=== PATIENT | female | born 1985 | race Two or more races ===

== ENCOUNTER 2023-11-23 14:51 | Outpatient (CLI) | payer OTHER | END 2023-11-23 14:52 | disposition home or self-care (01) | LOC: PRENATAL 14:51 | PROVIDERS: ATTEND Obstetrics & Gynecology Maternal & Fetal Medicine | DX: O36.80X0 Pregnancy with inconclusive fetal viability, not applicable or unspecified (principal); Z36.82 Encounter for antenatal screening for nuchal translucency; O09.529 Supervision of elderly multigravida, unspecified trimester; O98.919 Unspecified maternal infectious and parasitic disease complicating pregnancy, unspecified trimester; Z3A.12 12 weeks gestation of pregnancy ==

== ENCOUNTER 2024-05-26 12:25 | Outpatient (CLI) | payer OTHER | END 2024-05-26 13:24 | disposition home or self-care (01) | LOC: NST 12:25 | PROVIDERS: ATTEND Obstetrics & Gynecology | DX: Z34.83 Encounter for supervision of other normal pregnancy, third trimester (principal) ==

== ENCOUNTER 2024-05-28 07:50 | Inpatient (IN) | payer OTHER ==
[2024-05-28] VITALS (8 sets, daily range): BP systolic 115–133; BP diastolic 63–80
[~2024-05-28] VITALS: Ht 157.5 cm; Wt 77.6 kg
[2024-05-28] MEDS ORDERED: RINGERS SOLUTION,LACTATED 1,000 ML IV SCH (08:15)
[2024-05-28] MEDS ORDERED: AMPICILLIN SODIUM 2,000 MG VIAL IV NR (08:16)
[2024-05-28 08:47] LABS: HEMATOCRIT 38.3 % (36.0-45.00); HEMOGLOBIN 12.6 g/dL (12.0-15.00); MEAN CELL VOLUME 91.2 fL (80.00-100.00); MEAN CORPUSCULAR HEMOGLOBIN 30.1 pg (27.00-32.0); PLATELET COUNT 202 K/uL (150-450); RED CELL DISTRIBUTION WIDTH 13.3 % (11.5-14.5)
[2024-05-28 09:14] LABS: INR < 0.93; PARTIAL THROMBOPLASTIN TIME 30.4 SECONDS (22.0-34.0); PROTHROMBIN TIME 9.8 SECONDS (9.0-11.5)
[2024-05-28] MEDS ORDERED: OXYTOCIN 1,000 ML IV SCH ×2 (09:15)
[2024-05-28] MEDS ORDERED: OxyCODONE HCL/APAP UD (PERCOCET) PO PRN (09:15)
[2024-05-28] MEDS ORDERED: CHLORHEXIDINE GLUCONATE 120 ML BOTTLE TOP NR (09:15)
[2024-05-28 09:28] LABS: ALBUMIN 3.4 gm/dL (3.4-5.0); BILIRUBIN TOTAL 0.52 mg/dL (0.3-1.2); CALCIUM 9.2 mg/dL (8.5-10.1); CREATININE SERUM 0.85 mg/dL (0.55-1.02); GFR 75.68; GLOBULINA 4.2 G/DL (2.4-3.5); POTASSIUM 3.29 mEq/L (3.5-5.1); TOTAL PROTEIN 7.6 gm/dL (6.4-8.2)
[2024-05-28] MEDS ORDERED: PRENATAL TABLE1 EAC1 PO (09:40)
[2024-05-28] MEDS ORDERED: LIDOCAINE HCL 1% 10ML VIAL IJ ONE (10:30)
[2024-05-28] MEDS ORDERED: ERYTHROMYCIN BASE OPHT 1GM EACH TUBE OP ONE (10:30)
[2024-05-29 08:06] VITALS: BP 118/73
[2024-05-29] MEDS ORDERED: OXYTOCIN 2,000 ML IV SCH (09:15)
[2024-05-29 16:00] VITALS: BP 122/77
[2024-05-29 23:40] VITALS: BP 130/79
[2024-05-30 08:01] VITALS: BP 129/75
== END 2024-05-30 10:03 | disposition home or self-care (01) | DRG 807 ==
LOC: OB/GYN 07:50 → LDR 07:50 → OB/GYN 10:30 → LDR 06-03 14:44
PROVIDERS: ADMIT Obstetrics & Gynecology; ATTEND Obstetrics & Gynecology
PROC: 10E0XZZ Delivery of Products of Conception, External Approach (ICD-10-PCS; principal; 2024-05-28)
PROC: 4A1HXCZ Monitoring of Products of Conception, Cardiac Rate, External Approach (ICD-10-PCS; 2024-05-28)
DX: O80 Encounter for full-term uncomplicated delivery (principal); Z37.0 Single live birth; Z3A.39 39 weeks gestation of pregnancy; Z20.822 Contact with and (suspected) exposure to COVID-19